=== PATIENT | female | born 1985 | race Caucasian/White ===

== ENCOUNTER 2017-05-20 10:56 | Emergency (ER) | payer OTHER ==
--- NOTE | 2017-05-20 11:16 | UC ---
Throat Pain/Nasal Steve HPI - HPI Summary HPI Summary: 31 year old female presents with sinus congestion and cough. - History of Current Complaint Stated Complaint: RIGHT EYE COMPLAINT/SINUS CONGESTION Time Seen by Provider: 05/20/17 11:15 Hx Obtained From: Patient Hx Last Menstrual Period: 05/06/14 Onset/Duration: Sudden Onset Severity: Moderate Pain Scale Used: 0-10 Numeric - 5 Cough: Nonproductive Associated Signs & Symptoms: Positive: Negative - Allergies/Home Medications Allergies/Adverse Reactions: Allergies Allergy/AdvReac Type Severity Reaction Status Date / Time No Known Allergies Allergy Verified 05/20/17 11:27 PMH/Surg Hx/FS Hx/Imm Hx - Surgical History Surgical History: Yes Surgery Procedure, Year, and Place: T & A. 3 c-sections - Family History Known Family History: Positive: Hypertension, Diabetes - Social History Alcohol Use: None Substance Use Type: None Smoking Status (MU): Light Every Day Tobacco Smoker Type: Cigarettes Amount Used/How Often: < 1/2 ppd Length of Time of Smoking/Using Tobacco: 10 YRS OFF AND ON Have You Smoked in the Last Year: Yes Household Exposure Type: Cigarettes - Immunization History Most Recent Influenza Vaccination: unsure Review of Systems Constitutional: Negative Skin: Negative Eyes: Eye Redness ENT: Sinus Congestion, Sinus Pain/Tenderness Respiratory: Cough Cardiovascular: Negative Gastrointestinal: Negative Genitourinary: Negative Motor: Negative Neurovascular: Negative Musculoskeletal: Negative Neurological: Negative Psychological: Negative All Other Systems Reviewed And Are Negative: Yes Physical Exam Triage Information Reviewed: Yes Vital Signs Reviewed: Yes Eye Exam: Normal ENT: Positive: Nasal congestion, Nasal drainage, Sinus tenderness Dental Exam: Normal Neck exam: Normal Neck: Positive: 1 Respiratory: Positive: Wheezing Cardiovascular Exam: Normal Abdominal Exam: Normal Musculoskeletal Exam: Normal Neurological Exam: Normal Psychological Exam: Normal Skin Exam: Normal Throat Pain/Nasal Course/Dx - Differential Dx/Diagnosis Provider Diagnoses: sinus congestion. cough. chest congestion Discharge - Discharge Plan Condition: Stable Disposition: HOME Prescriptions: Albuterol HFA INHALER* [Ventolin HFA Inhaler*] 1 puff INH Q6H PRN #1 mdi PRN Reason: Wheezing Amoxicillin/Clavulanate TAB* [Augmentin TAB 875*] 875 mg PO BID #20 tab Guaifenesin-Codeine [Cheratussin AC] 1 syp PO Q8H PRN #120 ml MDD 15 ML PRN Reason: Cough LoraTADine TAB(NF) [Claritin 10 MG TAB(NF)] 10 mg PO DAILY #30 tab Polymyx/Trimethoprim OPTH* [Polytrim OPHTH*] 1 drop RIGHT EYE Q6H #1 btl Patient Education Materials: Sinusitis (ED) Referrals: Sariah Ge MD [Primary Care Provider] -
[2017-05-20 11:31] VITALS: BP 104/72
== END 2017-05-20 11:47 | disposition home or self-care (01) ==
LOC: UCCORT 10:56
DX: R05 Cough (principal); R09.81 Nasal congestion; R09.89 Other specified symptoms and signs involving the circulatory and respiratory systems; F17.210 Nicotine dependence, cigarettes, uncomplicated
CPT/HCPCS: 99212; G0463

== ENCOUNTER 2018-03-07 10:50 | Emergency (ER) | payer OTHER ==
[2018-03-07 12:42] VITALS: BP 114/74
--- NOTE | 2018-03-07 13:21 | RAD ---
HISTORY: left heel pain , no known injury COMPARISONS: None VIEWS: 4 , lateral, axial, and bilateral oblique views of the calcaneus FINDINGS: BONE DENSITY: Normal. BONES: There is no displaced fracture. There are plantar calcaneal enthesophytes. JOINTS: There is no arthropathy. ALIGNMENT: There is no dislocation. SOFT TISSUES: Unremarkable. OTHER FINDINGS: None. IMPRESSION: HEEL SPURS NO ACUTE OSSEOUS INJURY. IF SYMPTOMS PERSIST, RECOMMEND REPEAT IMAGING.
--- NOTE | 2018-03-07 13:36 | UC ---
Lower Extremity/Ankle HPI - HPI Summary HPI Summary: left foot pain x 5 days , getting worse over the past few days pas was sever last night 8 out of 10 , no known injury has been on her feet working a lot - History of Current Complaint Chief Complaint: UCLowerExtremity Stated Complaint: LEFT FOOT INJURY Time Seen by Provider: 03/07/18 12:37 Hx Obtained From: Patient Hx Last Menstrual Period: unknown, on depo shot ?: No Onset/Duration: Gradual Onset, Lasting Days - 5, Still Present, Worse Since - past 2 days Severity Initially: Moderate Severity Currently: Severe Pain Intensity: 7 Aggravating Factor(s): Standing, Ambulation Alleviating Factor(s): Rest, Elevation, Ice Able to Bear Weight: Yes - Allergies/Home Medications Allergies/Adverse Reactions: Allergies Allergy/AdvReac Type Severity Reaction Status Date / Time No Known Allergies Allergy Verified 03/07/18 12:38 PMH/Surg Hx/FS Hx/Imm Hx Previously Healthy: Yes - Surgical History Surgical History: Yes Surgery Procedure, Year, and Place: T & A. 3 c-sections - Family History Known Family History: Positive: Hypertension, Diabetes - Social History Alcohol Use: Occasionally Substance Use Type: None Smoking Status (MU): Former Smoker Type: Cigarettes Amount Used/How Often: < 1/2 ppd Length of Time of Smoking/Using Tobacco: 10 YRS OFF AND ON Have You Smoked in the Last Year: Yes When Did the Patient Quit Smoking/Using Tobacco: december 2017 Household Exposure Type: Cigarettes - Immunization History Most Recent Influenza Vaccination: unsure Review of Systems Constitutional: Negative Skin: Negative Eyes: Negative ENT: Negative Respiratory: Negative Is Patient Immunocompromised?: No All Other Systems Reviewed And Are Negative: Yes Physical Exam Triage Information Reviewed: Yes Appearance: Well-Appearing, No Pain Distress, Well-Nourished Vital Signs: Initial Vital Signs Temp 97.8 F 03/07/18 12:37 Pulse 83 03/07/18 12:37 Resp 17 03/07/18 12:37 BP 114/74 03/07/18 12:37 Pulse Ox 99 03/07/18 12:37 Vital Signs Reviewed: Yes Eyes: Positive: Conjunctiva Clear ENT: Positive: Normal ENT inspection, Hearing grossly normal, Pharynx normal Neck: Positive: Supple Respiratory: Positive: Chest non-tender, Lungs clear, Normal breath sounds Cardiovascular: Positive: RRR, No Murmur, Pulses Normal Musculoskeletal: Positive: Other: - left foot : no swelling, no erythema, + tenderness at the heek , Neurological Exam: Normal Diagnostics - Laboratory Diagnostic Studies Completed/Ordered: left heel: IMPRESSION: HEEL SPURS NO ACUTE OSSEOUS INJURY. IF SYMPTOMS PERSIST, RECOMMEND REPEAT IMAGING. Lower Extremity Course/Dx - Differential Dx/Diagnosis Provider Diagnoses: left heel pain. left heel spur Discharge - Sign-Out/Discharge Documenting (check all that apply): Patient Departure All imaging exams completed and their final reports reviewed: Yes - Discharge Plan Condition: Stable Disposition: HOME Prescriptions: Naproxen [Naprosyn 500 mg tab] 500 mg PO BID #20 tablet Patient Education Materials: Heel Spur (ED) Forms: *Work Release Referrals: Sariah Ge MD [Primary Care Provider] - 7 Days - Billing Disposition and Condition Condition: STABLE Disposition: Home
== END 2018-03-07 13:32 | disposition home or self-care (01) ==
LOC: UCCORT 10:50
DX: M77.32 Calcaneal spur, left foot (principal); Z87.891 Personal history of nicotine dependence
CPT/HCPCS: 99212; G0463

== ENCOUNTER 2018-07-04 20:55 | Emergency (ER) | payer OTHER ==
[2018-07-04 21:46] VITALS: BP 127/87
--- NOTE | 2018-07-04 22:10 | UC ---
Respiratory Complaint HPI - HPI Summary HPI Summary: Pt present with 7 days progressive congestion, ear fullness, post nasal drip and cough. Pt now with cough, green sputum. No rash. No mcdonald, vision changes. + wheeze + sick contact tactile temp +nyquil/dayquil not medications reviewed this visit - History of Current Complaint Chief Complaint: UCGeneralIllness Stated Complaint: COUGH, CONGESTION Time Seen by Provider: 07/04/18 22:08 Hx Obtained From: Patient Hx Last Menstrual Period: Depo Provera Pain Intensity: 5 - Allergies/Home Medications Allergies/Adverse Reactions: Allergies Allergy/AdvReac Type Severity Reaction Status Date / Time No Known Allergies Allergy Verified 07/04/18 21:46 Home Medications: Home Medications medroxyPROGESTERone ACETATE* [DEPO-Provera] 150 mg IM SEE INSTRUCTIONS 07/04/18 [History Confirmed 07/04/18] PMH/Surg Hx/FS Hx/Imm Hx Previously Healthy: Yes - Surgical History Surgical History: Yes Surgery Procedure, Year, and Place: T & A. 3 c-sections - Family History Known Family History: Positive: Hypertension, Diabetes - Social History Occupation: Employed Full-time Lives: With Family Alcohol Use: None Substance Use Type: None Smoking Status (MU): Light Every Day Tobacco Smoker Type: Cigarettes Amount Used/How Often: < 1/2 ppd Length of Time of Smoking/Using Tobacco: 10 YRS OFF AND ON Have You Smoked in the Last Year: Yes When Did the Patient Quit Smoking/Using Tobacco: december 2017 Household Exposure Type: Cigarettes - Immunization History Most Recent Influenza Vaccination: unsure Review of Systems All Other Systems Reviewed And Are Negative: Yes Constitutional: Positive: Fatigue ENT: Positive: Nasal Discharge, Sinus Congestion, Sinus Pain/Tenderness Respiratory: Positive: Cough Physical Exam - Summary Physical Exam Summary: Vital Signs Reviewed: Yes A+Ox3, no distress Eyes: Conjunctiva Clear, MARIANNE. EOM intact and full ENT: Hearing grossly normal fluid left TM, + turbinates boggy, + PND + TTP max sinus, mmoist, uvula midline, no exudate, no erythema Neck: Positive: Supple Respiratory: Positive: No respiratory distress, No accessory muscle use + BS throughout, few scattered wheeze, intermittent cough Cardiovascular: RRR nl s1, s2 no m/r CBT <2 sec abd soft + BS nt/nd no guarding, no distension Musculoskeletal Exam: SMITH x 4 without difficulty Strength Intact, ROM Intact Neurological: Positive: Alert, + sensation throughout Psychological: Positive: Normal Response To Family Skin: Positive: no rash, no ecchymosis Triage Information Reviewed: Yes Vital Signs: Initial Vital Signs Temp 97.2 F 07/04/18 21:41 Pulse 102 07/04/18 21:41 Resp 17 07/04/18 21:41 BP 127/87 07/04/18 21:41 Pulse Ox 99 07/04/18 21:41 Diagnostic Evaluation - Laboratory O2 Sat by Pulse Oximetry: 99 Respiratory Course/Dx - Course Course Of Treatment: Pt with progresssive cingetion, cough, sinus pressure, fatigue. VSS. exam c/w rhinosinusitis. scattered wheeze, cough. Will Rx abx. pred. mdi. hydrate. secretion precaution. humidify. return precaution - Differential Dx/Diagnosis Provider Diagnosis: Acute bronchitis, Rhinosinusitis Discharge - Sign-Out/Discharge Documenting (check all that apply): Patient Departure All imaging exams completed and their final reports reviewed: No Studies - Discharge Plan Condition: Stable Disposition: HOME Prescriptions: Amoxicillin/Clavulanate TAB* [Augmentin TAB 875*] 875 mg PO BID #19 tab predniSONE [Prednisone 20 MG TAB] 40 mg PO DAILY #8 tablet Patient Education Materials: Acute Bronchitis (ED), Rhinosinusitis (ED) Forms: *Work Release Referrals: Sariah Ge MD [Primary Care Provider] - Additional Instructions: - Stay well hydrated. Drink plenty of non-alcoholic, non-caffinated beverages. - Alternate ibuprofen (Advil, Motrin) 600mg and Tylenol every 3 hours for pain or fever. Take with food. Do NOT take for more than 4-5 days. - These infections are spread by secretions - do NOT share eating or drinking utensils - clean items you share with other people such as cell phones, computer mouse, TV remote, computer tablets,etc. Once you have been antibiotics for 2 days, change your toothbrush and your pillowcase. - get plenty of restful sleep - humidify the air in the room where you sleep - boil water, run a hot steam shower, vaporizer, cups of water by heat register - okay to take over the counter decongestant and cough medication - Take antibiotics and prednisone as prescribed - Use your inhaler - 2 puffs every 4 hours today and tomorrow, then as needed - get plenty of restful sleep - contact your doctor or return with questions or concerns - Billing Disposition and Condition Condition: STABLE Disposition: Home
[2018-07-04] MEDS ORDERED: Amoxicillin/Clavulanate TAB* 875 MG PO ONE (22:16)
[2018-07-04] MEDS ORDERED: Albuterol HFA INHALER* 8 gm MDI INH ONE (22:16)
[2018-07-04] MEDS ORDERED: predniSONE TAB* 20 MG PO ONE (22:17)
== END 2018-07-04 22:33 | disposition home or self-care (01) ==
LOC: UCCORT 20:55
DX: R05 Cough (principal); F17.210 Nicotine dependence, cigarettes, uncomplicated
CPT/HCPCS: 99213; A9270-GY; G0463; J7512

== ENCOUNTER 2018-11-01 12:00 | Emergency (ER) | payer OTHER ==
[2018-11-01 12:36] VITALS: BP 104/74
[2018-11-01] MEDS ORDERED: Ibuprofen ADULT LIQ* 600 MG/30 ML UDC PO ONE (12:52)
--- NOTE | 2018-11-01 12:52 | UC ---
UC General HPI - HPI Summary HPI Summary: day 7 of sinus congestion and R ear pain. no relief with otc medications. - History of Current Complaint Chief Complaint: UCGeneralIllness Stated Complaint: EAR PAIN,SINUS CONCERN Time Seen by Provider: 11/01/18 12:42 Hx Obtained From: Patient Hx Last Menstrual Period: Depo Provera Onset/Duration: Gradual Onset Timing: Constant Pain Intensity: 2 Aggravating: nothing Associated Signs & Symptoms: Positive: Cough. Negative: Chest Pain, SOB - Allergy/Home Medications Allergies/Adverse Reactions: Allergies Allergy/AdvReac Type Severity Reaction Status Date / Time No Known Allergies Allergy Verified 11/01/18 12:30 PMH/Surg Hx/FS Hx/Imm Hx Previously Healthy: Yes - Surgical History Surgical History: Yes Surgery Procedure, Year, and Place: T & A. 3 c-sections - Family History Known Family History: Positive: Hypertension, Diabetes - Social History Alcohol Use: Rare Substance Use Type: None Smoking Status (MU): Light Every Day Tobacco Smoker Type: Cigarettes Amount Used/How Often: < 1/2 ppd Length of Time of Smoking/Using Tobacco: 10 YRS OFF AND ON Have You Smoked in the Last Year: Yes When Did the Patient Quit Smoking/Using Tobacco: december 2017 Household Exposure Type: Cigarettes - Immunization History Most Recent Influenza Vaccination: unsure Review of Systems All Other Systems Reviewed And Are Negative: Yes ENT: Positive: Ear Ache, Nasal Discharge, Sinus Congestion, Sinus Pain/ Tenderness Respiratory: Positive: Cough. Negative: Shortness Of Breath Physical Exam Triage Information Reviewed: Yes Appearance: Well-Appearing Vital Signs: Initial Vital Signs Temp 98.5 F 11/01/18 12:30 Pulse 103 11/01/18 12:30 Resp 16 11/01/18 12:30 BP 104/74 11/01/18 12:30 Pulse Ox 99 11/01/18 12:30 Vital Signs Reviewed: Yes Eyes: Positive: Conjunctiva Clear ENT: Positive: Pharynx normal, Nasal congestion, TMs normal - L, TM red - R, Uvula midline, Other - Canals clear and no mastoid tenderness or auricular adenopathy.. Negative: Nasal drainage, Tonsillar swelling, Tonsillar exudate, Trismus, Muffled voice, Sinus tenderness Neck: Positive: Supple, Nontender, No Lymphadenopathy Respiratory: Positive: Lungs clear, Normal breath sounds Cardiovascular: Positive: RRR, No Murmur Abdomen Description: Positive: Nontender Musculoskeletal: Positive: ROM Intact Neurological: Positive: Alert Psychological: Positive: Age Appropriate Behavior Skin Exam: Normal Course/Dx - Differential Dx - Multi-Symptom Differential Diagnoses: Other - R OM, will tx with augmentin to give sinus coverage as well. - Diagnoses Provider Diagnosis: Otitis media Discharge - Sign-Out/Discharge Documenting (check all that apply): Patient Departure All imaging exams completed and their final reports reviewed: No Studies - Discharge Plan Condition: Stable Disposition: HOME Prescriptions: Amoxicillin/Clavulanate TAB* [Augmentin TAB 875*] 875 mg PO BID 10 Days #20 tab Patient Education Materials: Ear Infection (ED), Upper Respiratory Infection ( DC) Referrals: MATTHEW Carrasquillo [Primary Care Provider] - 7 Days - Billing Disposition and Condition Condition: STABLE Disposition: Home
== END 2018-11-01 12:58 | disposition home or self-care (01) ==
LOC: UCCORT 12:00
DX: H66.91 Otitis media, unspecified, right ear (principal); F17.210 Nicotine dependence, cigarettes, uncomplicated
CPT/HCPCS: 99212; A9270-GY; G0463